=== PATIENT | female | born 1955 | race Caucasian/White ===

== ENCOUNTER 2023-10-12 07:05 | Day surgery (SDC) | payer MEDICARE, BC, OTHER ==
[~2023-10-12 07:05] MED LIST: Lactated Ringers 1,000 ML IV SCH; Sodium Chloride 0.9% 10 ML Syringe FLUSH PRN
[2023-10-12] MEDS ORDERED: Lidocaine 2% 5 ML SDV IV ONE (07:06)
[2023-10-12] MEDS ORDERED: Propofol 200 MG/20 ML SDV IV ONE (07:06)
[2023-10-12] MEDS ORDERED: Simethicone Drops 40 MG/0.6 ML 30 ML Bottle PO ONE (08:33)
== END 2023-10-12 09:50 | disposition home or self-care (01) ==
LOC: FB.SDS 07:05
PROVIDERS: ATTEND Surgery
DX: Z12.11 Encounter for screening for malignant neoplasm of colon (principal); K57.30 Diverticulosis of large intestine without perforation or abscess without bleeding; R09.89 Other specified symptoms and signs involving the circulatory and respiratory systems; R01.1 Cardiac murmur, unspecified; Z88.0 Allergy status to penicillin; Z79.899 Other long term (current) drug therapy
CPT/HCPCS: A9270; G0121; J2704; J7120; 00812